=== PATIENT | male | born 1965 | race Caucasian/White ===

== ENCOUNTER 2019-11-25 09:31 | Inpatient (IN) | payer BC ==
[~2019-11-25] VITALS: Ht 172.7 cm; Wt 46.5 kg
[2019-11-25] MEDS ORDERED: LORazepam 2 mg/ml vial IV ONE ×2 (09:55→15:05)
[2019-11-25 10:03] LABS: BASOPHILS % (AUTO) 0.6 % (0-1); EOSINOPHILS % (AUTO) 0.5 % (0-6); HEMATOCRIT 42.1 % (42.0-52.0); HEMOGLOBIN 14.1 g/dl (14.0-17.9); LYMPHOCYTES # (AUTO) 1.1 X10'3 (1.1-4.8); LYMPHOCYTES % (AUTO) 15.1 % (21-51); MEAN CORPUSCULAR HEMOGLOBIN 29.5 PG (27.0-31.0); MEAN CORPUSCULAR HGB CONC 33.5 g/dL (33.0-36.5); MEAN CORPUSCULAR VOLUME 87.9 FL (78-98); MEAN PLATELET VOLUME 7.3 FL (7.4-10.4); MONOCYTES # (AUTO) 0.6 X10'3 (0-0.9); MONOCYTES % (AUTO) 7.9 % (2-12); NEUTROPHILS # (AUTO) 5.5 X10'3 (1.8-7.7); NEUTROPHILS % (AUTO) 75.9 % (42-75); PLATELET COUNT 294 X10'3 (140-440); RED BLOOD COUNT 4.79 X10'6 (4.70-6.10); RED CELL DISTRIBUTION WIDTH 13.1 % (11.5-14.5); WHITE BLOOD COUNT 7.2 X10'3 (4.5-11.0)
[2019-11-25 10:21] LABS: ALANINE AMINOTRANSFERASE 27 U/L (12-78); ALBUMIN 3.9 G/DL (3.4-5.0); ALKALINE PHOSPHATASE 107 IU/L (46-116); ANION GAP 7 (8-16); ASPARTATE AMINO TRANSFERASE 31 U/L (10-37); BILIRUBIN,TOTAL 0.5 MG/DL (0.1-1.0); BLOOD UREA NITROGEN 12 MG/DL (7-18); BUN/CREATININE RATIO 10.5 (5.4-32.0); CHLORIDE 104 MMOL/L (99-107); CREATININE 1.14 MG/DL (0.60-1.10); GLUCOSE 145 MG/DL (70-104); SODIUM 140 MMOL/L (135-145); TOTAL CARBON DIOXIDE 29.3 MMOL/L (24-32); TOTAL PROTEIN 7.7 G/DL (6.4-8.2); eGFR 67 ML/MIN
[2019-11-25 10:24] LABS: TROPONIN I < 0.04 NG/ML (0.0-0.05)
[2019-11-25] MEDS: normal saline 1000ml 1,000 ML IV SCH ×2 (10:36→17:21)
[2019-11-25 10:39] LABS: POTASSIUM 3.6 MMOL/L (3.5-5.1)
[2019-11-25] MEDS ORDERED: potassium CL 10mEq/100ml bag 100 ML IV PRN ×2 (10:40)
[2019-11-25] MEDS ORDERED: magnesium Cl slow-release 64mg tablet PO PRN (10:40)
[2019-11-25] MEDS ORDERED: HYDROcodone/acetaminophen 5mg/325mg tablet PO PRN (10:40)
[2019-11-25] MEDS ORDERED: magnesium 4gm in 100ml NS 100 ML IV PRN (10:40)
[2019-11-25] MEDS ORDERED: magnesium hydroxide 30ml (MOM) UD suspension PO PRN (10:40)
[2019-11-25] MEDS ORDERED: HYDROcodone/acetaminophen 10/325mg tab PO PRN (10:40)
[2019-11-25] MEDS ORDERED: magnesium 2GM in 50ml NS 50 ML IV PRN (10:40)
[2019-11-25] MEDS ORDERED: acetaminophen 325mg tablet PO PRN ×2 (10:40)
[2019-11-25] MEDS ORDERED: ondansetron/PF 4mg/2ml inj IV PRN (10:40)
[2019-11-25] MEDS ORDERED: bisacodyl 10mg suppository rectal RC PRN (10:40)
[2019-11-25] MEDS ORDERED: mag hydrox/Alum hydrox/simeth 30ml oral suspension PO PRN (10:40)
[2019-11-25] MEDS ORDERED: potassium Cl 20 mEq SR tablet PO PRN ×2 (10:40)
[2019-11-25 10:46] LABS: PARTIAL THROMBOPLASTIN TIME 28 SECONDS (22-32)
[2019-11-25 11:00] VITALS: BP 166/86
[2019-11-25] MEDS ORDERED: iohexol 350MG/ML 100ml bottle IV ONE (11:05)
[2019-11-25] MEDS ORDERED: LISI-600 PO (14:35)
[2019-11-25] MEDS ORDERED: AMOX-100 PO (14:52)
[2019-11-25] MEDS ORDERED: ALPRAZolam 0.25mg tablet PO PRN (15:05)
[2019-11-25] MEDS ORDERED: LORazepam 2 mg/ml vial ONE (15:08)
[2019-11-25] MEDS: ibuprofen tablet 400 MG TABLET PO PRN (16:32)
[2019-11-25] MEDS: amoxicillin 250mg capsule PO SCH (17:21)
[2019-11-25 18:00] VITALS: BP 144/81
--- NOTE | 2019-11-25 18:28 | NUR ---
Problems reprioritized. Patient report given, questions answered & plan of care reviewed with Samantha BALTAZAR.
[2019-11-25] MEDS: K and/or MAG REPLACEMENT MC SCH (20:00)
[2019-11-25] MEDS ORDERED: temazepam 15mg capsule PO PRN (21:00)
[2019-11-25 22:00] VITALS: BP 143/90
[2019-11-26] MEDS: amoxicillin 250mg capsule PO SCH ×2 (00:19→08:31)
[2019-11-26 02:00] VITALS: BP 126/72
[2019-11-26] MEDS: ibuprofen tablet 400 MG TABLET PO PRN (04:55)
[2019-11-26 06:00] VITALS: BP 138/71
[2019-11-26 06:29] LABS: BASOPHILS % (AUTO) 0.7 % (0-1); EOSINOPHILS # (AUTO) 0.2 X10'3 (0-0.9); EOSINOPHILS % (AUTO) 2.7 % (0-6); HEMATOCRIT 38.7 % (42.0-52.0); HEMOGLOBIN 12.8 g/dl (14.0-17.9); LYMPHOCYTES # (AUTO) 1.4 X10'3 (1.1-4.8); LYMPHOCYTES % (AUTO) 23.2 % (21-51); MEAN CORPUSCULAR HEMOGLOBIN 29.3 PG (27.0-31.0); MEAN CORPUSCULAR HGB CONC 33.1 g/dL (33.0-36.5); MEAN CORPUSCULAR VOLUME 88.4 FL (78-98); MEAN PLATELET VOLUME 7.3 FL (7.4-10.4); MONOCYTES # (AUTO) 0.7 X10'3 (0-0.9); MONOCYTES % (AUTO) 10.9 % (2-12); NEUTROPHILS # (AUTO) 3.8 X10'3 (1.8-7.7); NEUTROPHILS % (AUTO) 62.5 % (42-75); PLATELET COUNT 259 X10'3 (140-440); RED BLOOD COUNT 4.38 X10'6 (4.70-6.10); RED CELL DISTRIBUTION WIDTH 13.3 % (11.5-14.5); WHITE BLOOD COUNT 6.1 X10'3 (4.5-11.0)
[2019-11-26 07:05] LABS: ALANINE AMINOTRANSFERASE 28 U/L (12-78); ALBUMIN 3.1 G/DL (3.4-5.0); ALKALINE PHOSPHATASE 81 IU/L (46-116); ANION GAP 9 (8-16); ASPARTATE AMINO TRANSFERASE 19 U/L (10-37); BILIRUBIN,TOTAL 0.4 MG/DL (0.1-1.0); BLOOD UREA NITROGEN 9 MG/DL (7-18); BUN/CREATININE RATIO 9.6 (5.4-32.0); CALCIUM 8.3 MG/DL (8.5-10.1); CHLORIDE 108 MMOL/L (99-107); CHOL/HDL RATIO 3.8 (0.00-4.99); CHOLESTEROL 136 MG/DL (0-200); CREATININE 0.94 MG/DL (0.60-1.10); GLUCOSE 95 MG/DL (70-104); HDL CHOLESTEROL 36 MG/DL (35-60); LDL CHOLESTEROL 81 MG/DL (50-100); MAGNESIUM 1.8 MG/DL (1.5-2.4); POTASSIUM 3.6 MMOL/L (3.5-5.1); SODIUM 144 MMOL/L (135-145); TOTAL CARBON DIOXIDE 26.7 MMOL/L (24-32); TOTAL PROTEIN 6.2 G/DL (6.4-8.2); TRIGLYCERIDES 64 MG/DL (20-135); eGFR 84 ML/MIN
[2019-11-26] MEDS ORDERED: enoxaparin 40mg/0.4ml syringe SQ SCH (08:00)
[2019-11-26] MEDS ORDERED: lisinopril 20mg tablet PO SCH (08:00)
[2019-11-26] MEDS ORDERED: aspirin 81mg tablet.DR PO SCH (08:30)
[2019-11-26] MEDS: normal saline 1000ml 1,000 ML IV SCH (08:32)
[2019-11-26] MEDS: K and/or MAG REPLACEMENT MC SCH (08:39)
[2019-11-26 10:00] VITALS: BP 160/93
[2019-11-26] MEDS ORDERED: ALPR-149 PO (13:34)
== END 2019-11-26 14:50 | disposition home or self-care (01) | DRG 948 ==
LOC: ER 09:33 → ED HOLD 10:36 → EDBEDREQ 11:49 → ORTHO 4S 12:50
PROVIDERS: ADMIT Family Medicine; ATTEND Family Medicine
DX: R53.1 Weakness (principal); F41.1 Generalized anxiety disorder; I10 Essential (primary) hypertension; G47.30 Sleep apnea, unspecified; R06.4 Hyperventilation
CPT/HCPCS: 36415; 70450; 70470; 70498; 70551; 71045; 80053; 80061; 83735; 84443; 84484; 85025; 85610; 85651; 85730; 87081; 92508; 92616; 93005; 93306; 94760; 97110; 97116; 97162; 99285; G0378; J1650; J2060; J7030; Q9967